=== PATIENT | female | born 1965 | race Caucasian/White ===

== ENCOUNTER 2017-05-05 13:47 | Inpatient (IN) | payer BC, OTHER ==
[2017-05-05] MEDS ORDERED: MAG HYDROX/AL HYDROX/SIMETH 30 ML UNIT-DOSE CUP PO ONE (14:39)
[2017-05-05] MEDS ORDERED: FAMOTIDINE 20 MG/50 ML IVPB 50 ML IVPB ONE ×2 (14:39→15:00)
--- NOTE | 2017-05-05 14:51 | PDOC ---
History of Present Illness - General Chief Complaint: Tongue Swelling Stated Complaint: TONGUE SWELLING, THROAT PAIN Time Seen by Provider: 05/05/17 14:34 History Source: Patient - History of Present Illness Associated Symptoms: denies: chest pain, cough, fever/chills, nausea/vomiting, shortness of breath Past History - Past Medical History Allergies/Adverse Reactions: Allergies Allergy/AdvReac Type Severity Reaction Status Date / Time codeine Allergy Verified 05/05/17 14:12 Home Medications: Ambulatory Orders Amlodipine Besylate 10 mg PO DAILY 05/05/17 Losartan Potassium 25 mg PO DAILY 05/05/17 HTN: Yes - Immunization History Immunization Up to Date: Yes - Suicide/Smoking/Psychosocial Hx Smoking History: Current every day smoker Number of Cigarettes Smoked Daily: 1 Information on smoking cessation initiated: No Hx Alcohol Use: No Drug/Substance Use Hx: No Substance Use Type: None Review of Systems - Review of Systems Constitutional: No: Chills, Fever HEENTM: No: Throat Pain, Throat Swelling Respiratory: No: Cough, Shortness of Breath Cardiac (ROS): No: Chest Pain ABD/GI: No: Constipated, Diarrhea, Nausea, Vomiting *Physical Exam - Vital Signs Last Vital Signs Temp Pulse Resp BP Pulse Ox 98.6 F 62 16 129/78 96 05/05/17 14:12 05/05/17 14:12 05/05/17 14:12 05/05/17 14:12 05/05/17 14:12 - Physical Exam General Appearance: Yes: Appropriately Dressed. No: Apparent Distress HEENT: positive: Normal ENT Inspection, Normal Voice. negative: Scleral Icterus (R), Scleral Icterus (L), Tonsillar Exudate, Tonsillar Erythema Neck: positive: Supple. negative: Lymphadenopathy (R), Lymphadenopathy (L) Respiratory/Chest: positive: Lungs Clear, Normal Breath Sounds. negative: Respiratory Distress, Stridor Cardiovascular: positive: Regular Rate, S1, S2 Gastrointestinal/Abdominal: positive: Soft. negative: Tender Integumentary: positive: Dry, Warm Neurologic: positive: Fully Oriented, Alert, Normal Mood/Affect ED Treatment Course - LABORATORY CBC & Chemistry Diagram: 05/05/17 14:50 05/05/17 14:50 - RADIOLOGY Radiology Studies Ordered: Category Date Time Status NECK SOFT TISSUE [RAD] Stat Radiology 05/05/17 14:39 Ordered Medical Decision Making - Medical Decision Making 05/05/17 14:40 52 yo F, h/o HTN, on an ARB combination drug, p/w dysphagia. Patient states for the past 3 days whenever she eats she feels like food gets stuck in her throat and has to drink water for it to go down. Also c/o excessive belching. Denies throat pain, nausea, vomiting or abdominal pain. States she was seen in Urgent Care on and at that time appeared to also have ? swelling " to back of my throat" and so was treated for possible allergic reaction to unclear source (was not taken off blood pressure meds) with zantac, pepcid and prednisone. States she was also given amoxicillin for possible strep. Does not know results of rapid strep or culture. States she returned to same urgent care center the following day for persistent symptoms and was taken off the amoxicillin and given a steroid shot. States symptoms continued, so went to [facility] ED last night and states they did a rapid strep in ED which was negative and gave her a liquid dose of prednisone. Pt has no known food/drug allergies. She called Dr Antonio, who is the PMD of her mother, who referred her to ED See exam Dysphagia w/ belching Possible gastritis/GERD No e/o allergic rxn on exam today -GI cocktail -labs -Soft tissues neck film -discuss dispo w/ Dr Antonio 05/05/17 16:21 Labs and neck film unremarkable. K 3.3, will replete. Pt attempted to eat ice but states it did not go down and instead got stuck in her throat causing her to cough it back up. Might need to be admitted for GI eval as unable to tolerate po 05/05/17 17:[address] Antonio, admit to his service and place consult to Dr Villagomez of GI 05/05/17 17:26 05/05/17 17:32 Case d/w Dr Oseguera who will continue to follow pt inhouse *DC/Admit/Observation/Transfer Diagnosis at time of Disposition: Dysphagia Qualifiers: Dysphagia type: unspecified Qualified Code(s): R13.10 - Dysphagia, unspecified - Discharge Dispostion Condition at time of disposition: Good Admit: Yes - Referrals Referrals: Bora Antonio MD [Primary Care Provider] -
[2017-05-05] MEDS ORDERED: MAG HYDROX/AL HYDROX/SIMETH 30 ML UNIT-DOSE CUP ONE (15:00)
[2017-05-05] MEDS ORDERED: DEXTROSE 5%-0.45% SALINE 1,000 ML IV SCH ×2 (15:00→18:45)
[2017-05-05 15:26] LABS: BASOPHIL 0.4 % (0-2.0); EOSINOPHIL 0.1 % (0-4.5); MCH 29.4 pg (25.7-33.7); MCHC 33.5 g/dl (32.0-36.0); MEAN CELL VOLUME 87.7 fl (80-96); MEAN PLT VOLUME 9.3 fl (7.5-11.1); NEUTROPHILS 87.2 % (42.8-82.8); PLATELET COUNT 232 K/MM3 (134-434); RDW 14.2 % (11.6-15.6); WHITE BLOOD COUNT 10.9 K/mm3 (4.0-10.0)
[2017-05-05 15:51] LABS: ALBUMIN 4.1 g/dl (3.4-5.0); ALK PHOS 94 U/L (45-117); ANION GAP 8 (8-16); BILIRUBIN,TOTAL 0.5 mg/dL (0.2-1.0); CALCIUM 10.5 mg/dL (8.5-10.1); CO2 29 mmol/L (21-32); CREATININE 0.8 mg/dL (0.55-1.02); GLUCOSE,RANDOM 109 mg/dL (74-106); SGPT/ALT 56 U/L (12-78); TOT PROT 8.5 g/dl (6.4-8.2)
[2017-05-05 15:54] LABS: SGOT/AST 22 U/L (15-37)
[2017-05-05] MEDS ORDERED: POTASSIUM CHLORIDE ORAL LIQUID 20 MEQ/15 ML PO ONE (16:19)
[2017-05-05] MEDS ORDERED: POTASSIUM CHLORIDE ORAL LIQUID 20 MEQ/15 ML ONE (16:36)
[2017-05-05] MEDS ORDERED: LORazepam 1 MG TABLET PO ONE (17:26)
[2017-05-05] MEDS ORDERED: LORazepam 0.5 MG TABLET ONE (17:32)
[2017-05-05 18:21] LABS: INR 1.06 (0.82-1.09); PROTHROMBIN TIME (PATIENT) 11.7 SEC (9.98-11.88)
[2017-05-05] MEDS ORDERED: D5-1/2NS+20 MEQ KCL - 1,000 ML IV SCH (18:45)
--- NOTE | 2017-05-05 19:13 | CON.GI ---
Consult Consult Specialty:: GI: Dr. Oseguera covering for Dr. Villagomez Referred by:: Dr. Antonio Reason for Consultation:: Throat pain, difficulty swallowing - History of Present Illness Chief Complaint: I have pain in my throat and it's hard to swallow History of Present Illness: 52 yo F admitted through [facility] ER for evaluation of dysphagia. She states that she was in her USOH up until tghree days ago. She at a cookie and coffee and subsequently began experiencing the sensation of food gets stuck in her throat and has to drink water for it to go down. She felt that her throat would bulge out during these episodes. nausea, vomiting or abdominal pain. States she was seen in Urgent Care on and at that time appeared to also have ? swelling " to back of my throat" and so was treated for possible allergic reaction to unclear source (was not taken off blood pressure meds) with zantac, pepcid and prednisone. States she was also given amoxicillin for possible strep. Does not know results of rapid strep or culture. States she returned to same urgent care center the following day for persistent symptoms and was taken off the amoxicillin and given a steroid shot. States symptoms continued along with shortness of breath, so went to the [facility] ED last night and states they did a rapid strep in ED which was negative and gave her a liquid dose of prednisone. She has never had similar episodes in the past. She has never had an upper endoscopy or colonoscopy. There is no family history of colorectal cancer or other GI malignancy. She was given crackers in the ER to test if she could swallow solids. She could not swallow the crackers. She was able to take sips of water while I evaluated her in the ER. She currently denies any shortness of breath, nausea, vomiting. 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 Place of : [facility] History of Recent Travel: No Home Medications - Allergies Allergies/Adverse Reactions: Allergies Allergy/AdvReac Type Severity Reaction Status Date / Time codeine Allergy Verified 05/05/17 14:12 - Home Medications Home Medications: Ambulatory Orders Amlodipine Besylate 10 mg PO DAILY 05/05/17 Losartan Potassium 25 mg PO DAILY 05/05/17 Family Disease History - Family Disease History Family Disease History: Other: Father (Alive: 80: CAD), Mother (Alive: 75: CAD) , Brother (2, one with CAD, one with DM II), Daughter (2, healthy) Other Family History: No family history of colorectal cancer or other GI malignancy Review of Systems - Review of Systems Constitutional: denies: Fever, Unintentional Wgt. Loss HENT: reports: Difficult Swallowing. denies: Throat Pain Respiratory: reports: SOB (yesterday) Gastrointestinal: denies: Abdominal Pain, Constipation, Diarrhea, Rectal Bleeding Physical Exam-GI Vital Signs: Vital Signs Temperature 98.6 F 05/05/17 14:12 Pulse Rate 62 05/05/17 14:12 Respiratory Rate 16 05/05/17 14:12 Blood Pressure 129/78 05/05/17 14:12 O2 Sat by Pulse Oximetry (%) 96 05/05/17 14:12 Constitutional: Yes: Calm Eyes: No: Sclera Icterus Cardiovascular: Yes: Regular Rate and Rhythm. No: Murmur Respiratory: Yes: CTA Bilaterally Gastrointestinal Inspection: No: Distention ...Auscultate: Yes: Normoactive Bowel Sounds ...Palpate: No: Hepatomegaly, Splenomegaly Edema: No Neurological: Yes: Alert, Oriented Labs: INR, PTT INR 1.06 (0.82-1.09) 05/05/17 18:00 Assessment/Plan Throat discomfort / dysphagia: Able to swallow liquids in ED tonight Advised the following: NPO ENT IV Hydration Protonix 40mg IVPB daily Eval of hypercalcemia / hyperproteinemia AM Labs Discussed possible EGD for further intraluminal evaluation. Discussed potential risks of the procedure like but not limited to bleeding, perforation requiring surgery to repair, infection sedation medication effects all of which could be potentially life threatening. She has agreed to the procedure.
--- NOTE | 2017-05-05 19:17 | HP ---
Admitting History and Physical - Primary Care Physician PCP: Bora Antonio - Admission Chief Complaint: inability to swallow History of Present Illness: 52 y/o F with Hx of Htn, developed sudden onset of difficulty swallowing on 05/03 while at work; in association with increased throat & nasal secretions. She expressed the sensation that she could not breath and felt her throat "closing" down, causing her to panic. She then went to Urgent [facility] Ctr in the [place] where she was given PO Abs, and steroids (which she started immediately that day), but had little effect. She then went back later in the day, and was given a steroid injection. She was told that a throat strept test was negative. That night she still felt ill. The next day, she was not improved, and then went to the Ed at [facility] ([place] She was d/c'd home, with Rx for Zpak. No Xrays were taken in any of the se facilities. Today she remained the same, with little ability to swallow liquids, negotiating them slowly down her throat. She denies a sore throat, ear ache, cough, SOB, rashes, dizziness, palpitations. She has had no previous such episodes. She does smoke, but only 1 cigarette a day, and also does "vaping", which she did in the AM of 05/03/17. She was "well" all this past week prior to this episode.She denies being under any unusual degree of stress. 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 History of Recent Travel: No Home Medications - Allergies Allergies/Adverse Reactions: Allergies Allergy/AdvReac Type Severity Reaction Status Date / Time codeine Allergy Verified 05/05/17 14:12 - Home Medications Home Medications: Ambulatory Orders Amlodipine Besylate 10 mg PO DAILY 05/05/17 Losartan Potassium 25 mg PO DAILY 05/05/17 Family Disease History - Family Disease History Family Disease History: Diabetes: Brother, Heart Disease: Father, Mother, Brother Review of Systems - Review of Systems Constitutional: reports: No Symptoms Eyes: reports: No Symptoms HENT: reports: Difficult Swallowing Neck: reports: Lumps Cardiovascular: reports: No Symptoms Respiratory: reports: No Symptoms Gastrointestinal: reports: No Symptoms Genitourinary: reports: No Symptoms Breasts: reports: No Symptoms Reported Musculoskeletal: reports: No Symptoms Integumentary: reports: No Symptoms Neurological: reports: No Symptoms Endocrine: reports: No Symptoms Hematology/Lymphatic: reports: No Symptoms Psychiatric: reports: No Symptoms (to breathing issue), Anxiety Physical Examination Vital Signs: Vital Signs Temperature 98.6 F 05/05/17 14:12 Pulse Rate 62 05/05/17 14:12 Respiratory Rate 16 05/05/17 14:12 Blood Pressure 129/78 05/05/17 14:12 O2 Sat by Pulse Oximetry (%) 96 05/05/17 14:12 Findings/Remarks: found awake and coherent on ED stretcher skin--no acute lesions, diaphoresis head--NC eyes--eomi, SANTA oral--no swelling of oral structures, redness; tongue midline & normal appearing neck--supple, no masses, stridor, phonation is clear lungs--some rhonchi (expiratory); unlabored heart--RR breasts--(deferred) abd--soft, NT, ND, no masses ext--no CCE; ROM intact neuro--alert; lucid, coherent; speech is fluent; no focal motor deficits, no tremors. Labs: CBCD WBC 10.9 K/mm3 (4.0-10.0) H 05/05/17 14:50 RBC 4.91 M/mm3 (3.60-5.2) 05/05/17 14:50 Hgb 14.4 GM/dL (10.7-15.3) 05/05/17 14:50 Hct 43.0 % (32.4-45.2) 05/05/17 14:50 MCV 87.7 fl (80-96) 05/05/17 14:50 MCHC 33.5 g/dl (32.0-36.0) 05/05/17 14:50 RDW 14.2 % (11.6-15.6) 05/05/17 14:50 Plt Count 232 K/MM3 (134-434) 05/05/17 14:50 MPV 9.3 fl (7.5-11.1) 05/05/17 14:50 CMP Sodium 136 mmol/L (136-145) 05/05/17 14:50 Potassium 3.3 mmol/L (3.5-5.1) L 05/05/17 14:50 Chloride 99 mmol/L (98-107) 05/05/17 14:50 Carbon Dioxide 29 mmol/L (21-32) 05/05/17 14:50 Anion Gap 8 (8-16) 05/05/17 14:50 BUN 20 mg/dL (7-18) H 05/05/17 14:50 Creatinine 0.8 mg/dL (0.55-1.02) 05/05/17 14:50 Creat Clearance w eGFR > 60 (>60) 05/05/17 14:50 Random Glucose 109 mg/dL (74-106) H 05/05/17 14:50 Calcium 10.5 mg/dL (8.5-10.1) H 05/05/17 14:50 Total Bilirubin 0.5 mg/dL (0.2-1.0) 05/05/17 14:50 AST 22 U/L (15-37) 05/05/17 14:50 ALT 56 U/L (12-78) 05/05/17 14:50 Alkaline Phosphatase 94 U/L (45-117) 05/05/17 14:50 Total Protein 8.5 g/dl (6.4-8.2) H 05/05/17 14:50 Albumin 4.1 g/dl (3.4-5.0) 05/05/17 14:50 INR, PTT INR 1.06 (0.82-1.09) 05/05/17 18:00 Imaging - Results X-ray: Report Reviewed (neck soft tissue) Cat Scan: Pending Problem List - Problems (1) Dysphagia Assessment/Plan: developing abruptly to where she is minimally able to swallow liquids slowly; indicating that there is something "stuck" in her thraot that she cannot clear. PLAN: GI & ENT eval; may need endoscopy; will Rx clear liquids only. Code(s): R13.10 - DYSPHAGIA, UNSPECIFIED Qualifiers: Dysphagia type: unspecified Qualified Code(s): R13.10 - Dysphagia, unspecified (2) Hypertension Assessment/Plan: longstanding; controlled with dual agents; will use amlodpine only for now. Code(s): I10 - ESSENTIAL (PRIMARY) HYPERTENSION Qualifiers: Hypertension type: essential hypertension Qualified Code(s): I10 - Essential (primary) hypertension (3) Hypercalcemia Assessment/Plan: no past hx of this; will check TFTs as well as PTH, ionized calcium Code(s): E83.52 - HYPERCALCEMIA (4) Elevated blood protein Assessment/Plan: high TP noted; will check SPEP Code(s): E88.09 - OTH DISORDERS OF PLASMA-PROTEIN METABOLISM, NEC Assessment/Plan 52 y/o F previously healthy now with inability to swallow properly despite having been Rx'd antibiotics and steroids. ~~~~~~~~~~~~~~~~~~~~~~~~~~~ Dr Antonio
--- NOTE | 2017-05-05 20:32 | PN ---
Progress Note (short form) - Note Progress Note: Called imaging gluing machine operator [facility] to have the reports of CT scan of neck and chest faxed over for review: there was no radiologist able to be contacted by their machine load clerk. Ms. David's nurse had called earlier as well. I gave him the patient information to see if he could have the reports faxed over and he told me he would pass along that information.
[2017-05-05] MEDS: DEXTROSE 5%-0.45% SALINE 1,000 ML IV SCH (21:00)
[2017-05-05 21:25] VITALS: BMI 28.6
[2017-05-05] MEDS: PANTOPRAZOLE SODIUM 40 MG in SODIUM CHLORIDE 100 ML IVPB SCH (21:33)
[2017-05-05 22:37] LABS: URINE APPEARANCE SLCLOUDY; URINE BILIRUBIN NEGATIVE (NEGATIVE); URINE BLOOD NEGATIVE (NEGATIVE); URINE COLOR YELLOW; URINE GLUCOSE (UA) NEGATIVE (NEGATIVE); URINE KETONE NEGATIVE (NEGATIVE); URINE LEUK ESTERASE NEGATIVE (NEGATIVE); URINE NITRITE NEGATIVE (NEGATIVE); URINE PROTEIN NEGATIVE (NEGATIVE); URINE UROBILINOGEN NEGATIVE mg/dL (0.2-1.0)
[2017-05-05] MEDS: LORazepam 0.5 MG TABLET PO PRN (22:50)
[2017-05-06] MEDS: DEXTROSE 5%-0.45% SALINE 1,000 ML IV SCH (06:08)
[2017-05-06 07:44] LABS: BASOPHIL 0.6 % (0-2.0); EOSINOPHIL 0.3 % (0-4.5); MCH 29.4 pg (25.7-33.7); MCHC 33.4 g/dl (32.0-36.0); MEAN CELL VOLUME 88.1 fl (80-96); MEAN PLT VOLUME 9.3 fl (7.5-11.1); NEUTROPHILS 63.2 % (42.8-82.8); PLATELET COUNT 206 K/MM3 (134-434); RDW 14.3 % (11.6-15.6)
[2017-05-06 08:11] LABS: ANION GAP 7 (8-16); CALCIUM 9.2 mg/dL (8.5-10.1); CO2 30 mmol/L (21-32); CREATININE 0.8 mg/dL (0.55-1.02); GLUCOSE,RANDOM 83 mg/dL (74-106); MAGNESIUM 2.2 mg/dL (1.8-2.4)
[2017-05-06 08:20] LABS: THYROID STIMULATING HORMONE 2.02 uIU/ml (0.358-3.74)
[2017-05-06] MEDS ORDERED: POTASSIUM CHLORIDE 20 MEQ PREMIX IVPB 100 ML IVPB SCH (09:00)
--- NOTE | 2017-05-06 09:15 | PN ---
Progress Note (short form) - Note Progress Note: States feeling a little better today however had problems swallowing last night and was given ativan last night, Prelim nighthawk revealed calcifications in the coronaries, carotids and mild thickening of the cervical esophagus. Able to tolerate ice chips last night ENT evaluation Replete K (10 Meq a x 2 ordered) For EGD Will need f/u of aterosclerotic depoits in vessels per PMD
[2017-05-06] MEDS: KCL 10 MEQ IVPB 100 ML IVPB SCH ×2 (09:17→10:30)
[2017-05-06] MEDS ORDERED: PROMETHAZINE HCL 25 MG/1 ML VIAL IVPUSH PRN (09:26)
[2017-05-06] MEDS ORDERED: ONDANSETRON 4 MG/2 ML VIAL IVPUSH PRN (09:26)
[2017-05-06] MEDS ORDERED: LACTATED RINGERS SOLUTION 1,000 ML IV SCH (09:30)
--- NOTE | 2017-05-06 09:54 | EKG ---
Test Reason : Blood Pressure : / mmHG Vent. Rate : 065 BPM Atrial Rate : 065 BPM P-R Int : 154 ms QRS Dur : 084 ms QT Int : 420 ms P-R-T Axes : 051 031 034 degrees QTc Int : 436 ms NORMAL SINUS RHYTHM NORMAL ECG NO PREVIOUS ECGS AVAILABLE Confirmed by NICK FULLER MD ([id number]) on 05/06/2017 9:53:52 AM Referred By: Confirmed By:NICK FULLER MD
[2017-05-06] MEDS ORDERED: PANTOPRAZOLE SODIUM 40 MG in SODIUM CHLORIDE 100 ML IVPB SCH (10:00)
--- NOTE | 2017-05-06 11:27 | PN ---
Progress Note (short form) - Note Progress Note: ^^^^^^^^^^ Medical Current Medications Amlodipine Besylate (Norvasc -) 5 mg PO DAILY CHAS Fentanyl (Sublimaze Injection -) 50 mcg IVPUSH [id number] PRN PRN Reason: PAIN Stop: 05/09/17 09:27 Pantoprazole Sodium 40 mg/ (Sodium Chloride) 100 mls @ 200 mls/hr IVPB DAILY CHAS Last Admin: 05/05/17 21:33 Dose: 200 mls/hr Dextrose/Sodium Chloride (D5-1/2ns -) 1,000 mls @ 100 mls/hr IV ASDIR CHAS Last Admin: 05/06/17 06:08 Dose: 100 mls/hr Lactated Ringer's (Lactated Ringers Solution) 1,000 mls @ 125 mls/hr IV ASDIR CHAS Lorazepam (Ativan -) 0.5 mg PO BID PRN PRN Reason: ANXIETY Last Admin: 05/05/17 22:50 Dose: 0.5 mg Ondansetron HCl (Zofran Injection) 4 mg IVPUSH Q6H PRN PRN Reason: NAUSEA AND/OR VOMITING Stop: 05/06/17 15:27 Promethazine HCl (Phenergan Injection -) 12.5 mg IVPUSH Q6H PRN PRN Reason: NAUSEA-FOR RESCUE AFTER 15 MIN Stop: 05/06/17 15:27 Laboratory Results - last 24 hr 05/05/17 05/05/17 05/05/17 14:50 14:50 18:00 WBC 10.9 H RBC 4.91 Hgb 14.4 Hct 43.0 MCV 87.7 MCH 29.4 MCHC 33.5 RDW 14.2 Plt Count 232 MPV 9.3 Neutrophils % 87.2 H Lymphocytes % 8.5 Monocytes % 3.8 Eosinophils % 0.1 Basophils % 0.4 PT with INR 11.70 INR 1.06 Sodium 136 Potassium 3.3 L Chloride 99 Carbon Dioxide 29 Anion Gap 8 BUN 20 H Creatinine 0.8 Creat Clearance w eGFR > 60 Random Glucose 109 H Calcium 10.5 H Magnesium Total Bilirubin 0.5 AST 22 ALT 56 Alkaline Phosphatase 94 Total Protein 8.5 H Albumin 4.1 TSH Urine Color Urine Appearance Urine pH Urine Protein Urine Glucose (UA) Urine Ketones Urine Blood Urine Nitrite Urine Bilirubin Urine Urobilinogen Blood Type Antibody Screen 05/05/17 05/05/17 05/06/17 18:00 22:25 06:40 WBC 6.0 D RBC 4.53 Hgb 13.3 Hct 39.9 MCV 88.1 MCH 29.4 MCHC 33.4 RDW 14.3 Plt Count 206 MPV 9.3 Neutrophils % 63.2 D Lymphocytes % 25.6 D Monocytes % 10.3 H D Eosinophils % 0.3 D Basophils % 0.6 PT with INR INR Sodium Potassium Chloride Carbon Dioxide Anion Gap BUN Creatinine Creat Clearance w eGFR Random Glucose Calcium Magnesium Total Bilirubin AST ALT Alkaline Phosphatase Total Protein Albumin TSH Urine Color Yellow Urine Appearance Slcloudy Urine pH 6.0 Urine Protein Negative Urine Glucose (UA) Negative Urine Ketones Negative Urine Blood Negative Urine Nitrite Negative Urine Bilirubin Negative Urine Urobilinogen Negative Blood Type AB POSITIVE Antibody Screen Negative 05/06/17 06:40 WBC RBC Hgb Hct MCV MCH MCHC RDW Plt Count MPV Neutrophils % Lymphocytes % Monocytes % Eosinophils % Basophils % PT with INR INR Sodium 140 Potassium 3.0 L Chloride 103 Carbon Dioxide 30 Anion Gap 7 L BUN 12 D Creatinine 0.8 Creat Clearance w eGFR Random Glucose 83 D Calcium 9.2 Magnesium 2.2 Total Bilirubin AST ALT Alkaline Phosphatase Total Protein Albumin TSH 2.02 Urine Color Urine Appearance Urine pH Urine Protein Urine Glucose (UA) Urine Ketones Urine Blood Urine Nitrite Urine Bilirubin Urine Urobilinogen Blood Type Antibody Screen Vital Signs Temperature 97.9 F 05/06/17 06:00 Pulse Rate 71 05/06/17 09:26 Respiratory Rate 18 05/06/17 09:26 Blood Pressure 145/88 05/06/17 09:26 O2 Sat by Pulse Oximetry (%) 96 05/05/17 21:12 CC; loose BM this AM; still feels throat discmfort `````````````````` skin--good color eyes--midline neck--no masses, stridor, tenderness lungs--clear heart--RR ext--no edema neuro--alert, lucid, coherent `````````````````````````````` EKG=NSR, no acute findings ```````````````````````````` Summ > dysphagia--still has difficulty swallowing; CT reveals thickened upper esoph ( see report); for EGD; would need ENt eval (consult pending) > Htn--BP is reasonable range > low K--replenishing pre-EGD; possibley 2nd loose BMs > coronary atherosclerosis--as shown by CT; will need cardio eval as OP > hypercalcemia--no longer evident > cholelithiasis--asympt; picked up on CT ~~~~~~~~~~~~~~~~~~~~~~~~~~~~ Dr Antonio Problem List - Problems (1) Dysphagia Code(s): R13.10 - DYSPHAGIA, UNSPECIFIED Qualifiers: Dysphagia type: unspecified Qualified Code(s): R13.10 - Dysphagia, unspecified; R13.10 - Dysphagia, unspecified (2) Hypertension Code(s): I10 - ESSENTIAL (PRIMARY) HYPERTENSION Qualifiers: Hypertension type: essential hypertension Qualified Code(s): I10 - Essential (primary) hypertension; I10 - Essential (primary) hypertension; I10 - Essential (primary) hypertension (3) Hypercalcemia Code(s): E83.52 - HYPERCALCEMIA (4) Elevated blood protein Code(s): E88.09 - OTH DISORDERS OF PLASMA-PROTEIN METABOLISM, NEC
[2017-05-06] MEDS: PANTOPRAZOLE SODIUM 40 MG in SODIUM CHLORIDE 100 ML IVPB SCH (11:28)
[2017-05-06] MEDS ORDERED: LIDOCAINE HCL/PF 2% SDV 5ML VIAL ONE (11:48)
[2017-05-06] MEDS ORDERED: PROPOFOL 20 ML ONE (11:48)
--- NOTE | 2017-05-06 12:32 | PN ---
Progress Note (short form) - Note Progress Note: EGD complete. Report left in procedural section of physical chart and to be scanned into [employer]
[2017-05-06] MEDS: amLODIPine BESYLATE 5 MG TABLET (FP) PO SCH (13:01)
[2017-05-06] MEDS: LORazepam 0.5 MG TABLET PO PRN (13:52)
[2017-05-06 14:10] LABS: ANION GAP 5 (8-16); CALCIUM 8.7 mg/dL (8.5-10.1); CO2 32 mmol/L (21-32); CREATININE 0.7 mg/dL (0.55-1.02); GLUCOSE,RANDOM 96 mg/dL (74-106)
[2017-05-06] MEDS ORDERED: POTASSIUM CHLORIDE ORAL LIQUID 20 MEQ/15 ML PO SCH ×2 (15:30→18:00)
[2017-05-06] MEDS ORDERED: KCL 10 MEQ IVPB 100 ML IVPB SCH (15:30)
--- NOTE | 2017-05-06 16:40 | CON.ENT ---
Consult Consult Specialty:: ENT Referred by:: Marisela Reason for Consultation:: Difficulty swallowing - History of Present Illness Chief Complaint: Throat discomfort History of Present Illness: She developed diarrhea and then throat discomfort a few days ago. She went to Urgent care and was diagnosed with Some kind of throat infection/inflammation and had "3 neg throat cultures" over 3 urgent care and ER visits. She says she felt her throat was tight, but NEVER felt throat pain. She denies voice change. She still has loose stools and low potassium. She was on steroids and treatment for angioedema but continued to have this throat feeling. She was admitted throught the ER and has had normal WBC, and low potassium. She has had EGD earlier today that did not show any significant pathology. She has a clear voice today, and is burping a lot ad after drinking SELTZER. - History Source History Provided By: Patient, Medical Record Limitations to Obtaining History: No Limitations - Past Medical History Cardio/Vascular: Yes: HTN Musculoskeletal: Yes: Other (OA neck) - Past Surgical History Past Surgical History: Yes: Tubal Ligation (c5-c6 cervical surgery for disc dz; 3 yrs ago) Additional Surgical History: C5-C6 Spinal Fusion - Alcohol/Substance Use Hx Alcohol Use: No History of Substance Use: reports: None - Smoking History Smoking history: Current every day smoker Have you smoked in the past 12 months: Yes Aproximately how many cigarettes per day: 1 - Social History Usual Living Arrangement: With Spouse ADL: Independent 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 History of Recent Travel: No Home Medications - Allergies Allergies/Adverse Reactions: Allergies Allergy/AdvReac Type Severity Reaction Status Date / Time codeine Allergy Verified 05/05/17 14:12 - Home Medications Home Medications: Ambulatory Orders Amlodipine Besylate 10 mg PO DAILY 05/05/17 Losartan Potassium 25 mg PO DAILY 05/05/17 Family Disease History - Family Disease History Family Disease History: Diabetes: Brother, Heart Disease: Father, Mother, Brother, Other: Daughter (2, healthy) Other Family History: No family history of colorectal cancer or other GI malignancy Physical Exam-ENT Vital Signs: Vital Signs Temperature 97.7 F 05/06/17 15:58 Pulse Rate 67 05/06/17 15:58 Respiratory Rate 18 05/06/17 15:58 Blood Pressure 132/79 05/06/17 15:58 O2 Sat by Pulse Oximetry (%) 100 05/06/17 12:50 Constitutional: Yes: Well Nourished, No Distress Head: Yes: WNL, Atraumatic, Normocephalic Face: Yes: WNL, Symmetrical Eyes: Yes: WNL Nose: Yes: WNL Nasal Passage: Yes: WNL Oral/Pharynx: Yes: WNL Outer Ear: Yes: WNL Neck: Yes: WNL, Supple, Trachea Midline Imaging - Results Cat Scan: Image Reviewed (No upperaerodigestive pathology) Problem List - Problems (1) Dysphagia Assessment/Plan: I believe she may have a viral illness that caused some diarrhea and reflux. Stress exacerbated this then the addition of steroids may have made reflux worse. She has NO signs of throat infection. I would use maalox/mylanta to soothe throat for a few days as needed together with PPI/H2 blockers. She should avoid seltzer, soda, spicy foods. She should avoid eating then lying down and avoid big meals. She can f/u with me in 1-2 weeks. Code(s): R13.10 - DYSPHAGIA, UNSPECIFIED Qualifiers: Dysphagia type: pharyngoesophageal phase Qualified Code(s): R13.14 - Dysphagia, pharyngoesophageal phase; R13.14 - Dysphagia, pharyngoesophageal phase Procedure Note Procedure: Fiberoptic laryngoscopy: No lesions or masses. No paralyis. No pooling. She has mild arytenoid erythema. Exam c/w mild Laryngopharyngeal reflux.
--- NOTE | 2017-05-06 17:50 | PN ---
Progress Note (short form) - Note Progress Note: called by dr. martha blanc. he tells me that there was another finding on the chest CT scan not read on prelim report. there is a 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 that will need further follow-up.
[2017-05-06] MEDS: MAG HYDROX/AL HYDROX/SIMETH 30 ML UNIT-DOSE CUP PO SCH ×2 (18:49→23:07)
[2017-05-07] MEDS: MAG HYDROX/AL HYDROX/SIMETH 30 ML UNIT-DOSE CUP PO SCH ×3 (06:24→21:36)
[2017-05-07 07:09] LABS: ANION GAP 9 (8-16); CALCIUM 9.1 mg/dL (8.5-10.1); CO2 31 mmol/L (21-32); CREATININE 0.7 mg/dL (0.55-1.02); GLUCOSE,RANDOM 85 mg/dL (74-106)
[2017-05-07] MEDS: amLODIPine BESYLATE 5 MG TABLET (FP) PO SCH (09:05)
[2017-05-07] MEDS: PANTOPRAZOLE 40 MG TABLET (FP) PO SCH (09:05)
--- NOTE | 2017-05-07 12:38 | CONSULT ---
Admitting History and Physical - Primary Care Physician PCP: Bora Antonio - Admission History of Present Illness: Per EMR: Admission Chief Complaint: inability to swallow History of Present Illness: 52 y/o F with Hx of Htn, developed sudden onset of difficulty swallowing on 05/03 while at work; in association with increased throat & nasal secretions. She expressed the sensation that she could not breath and felt her throat "closing" down, causing her to panic. She then went to Urgent care Ctr in the [place] where she was given PO Abs, and steroids (which she started immediately that day), but had little effect. She then went back later in the day, and was given a steroid injection. She was told that a throat strept test was negative. That night she still felt ill. The next day, she was not improved, and then went to the Ed at [facility] ([place] She was d/c'd home, with Rx for Zpak. No Xrays were taken in any of the se facilities. Today she remained the same, with little ability to swallow liquids, negotiating them slowly down her throat. She denies a sore throat, ear ache, cough, SOB, rashes, dizziness, palpitations. She has had no previous such episodes. She does smoke, but only 1 cigarette a day, and also does "vaping", which she did in the AM of 05/03/17. She was "well" all this past week prior to this episode.She denies being under any unusual degree of stress ENT evaluation "Fiberoptic laryngoscopy: No lesions or masses. No paralyis. No pooling. She has mild arytenoid erythema. Exam c/w mild Laryngopharyngeal reflux." Pt reports spinal sx 3 yrs ago. Fell in February 2017, with subsequent neck pain.Pt wearing neck brace. Reports not being able to swallow since . Now on full fluids. She is swallowing thin water and ice cream but reports thick soup and applesauce "gets stuck in her throat." History Source: Patient, Medical Record Limitations to Obtaining History: No Limitations - Past Medical History Cardiovascular: Yes: HTN Musculoskeletal: Yes: Other (OA neck) - Past Surgical History Past Surgical History: Yes: Tubal Ligation (c5-c6 cervical surgery for disc dz; 3 yrs ago) - Smoking History Smoking history: Current every day smoker Have you smoked in the past 12 months: Yes Aproximately how many cigarettes per day: 1 - Alcohol/Substance Use Hx Alcohol Use: No History of Substance Use: reports: None - Social History ADL: Independent 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) - General Mental Status: Alert and Oriented, Awake and Alert, Able to Follow Commands Attention: Intact Ability to Follow Directions: Excellent Head/Neck Control: WFL - Hearing Hearing: Functional Speech Evaluation - Communication Primary Language: MOZAMB[place] Communication: Yes: Within Normal Limits Oral Expression Ability: Yes: No Impairment - Speech Production Able to Make Needs Known: Yes: WNL Intelligibility: Yes: WNL - Speech Characteristics Voice Loudness: Normal Voice Pitch: Yes: Normal Voice Phonatory-based Quality: Yes: Normal Speech Pattern: Normal Speech Clarity: < 100% Nasal Resonance: Normal Articulation: Yes: Precise - Language/Auditory Comprehension Follows: Yes: 2 Stage Simple Commands - Language/Verbal Expression Able to Respond to Simple Queries: Yes: WNL Able to Communicate Wants and Needs: Yes: WNL Functional Communication Status: Yes: WNL - 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 Memory: Yes: WNL Short Term Memory: Yes: WNL - Swallow Evaluation/Bedside Assessment Current Nutritional Intake: Full Liquids Oral Secretions: Yes: WFL (reports post nasaldrip) Dentition: Yes: Adequate Facial Symmetry at Rest: Symmetrical Facial Symmetry on Retraction: Symmetrical Against Resistance Opening: Normal Against Resistance Closing: Normal Pucker Lips: Normal Smile: Normal Lingual Movement: Normal, Symmetric Lingual Speed of Movement: Normal Lingual Movement Strgth Against Opposition: Normal Lingual Movement Characteristics: Normal Laryngeal Movement: Able to Palpate Labial Seal: WFL Oral Prep Time: WFL A-P Transit: WFL Pocketing: None Timing of Swallow: WFL Coughing/Throat Clear: No Change in Voice: No Recommendations - Dysphagia Impressions/Plan Dysphagia Impressions: Ongoing Evaluation *Silent aspiration: cannot be R/O at bedside Recommendations: Modified Barium Swallow
[2017-05-07] MEDS ORDERED: POTASSIUM CHLORIDE TABS 10 MEQ TABLET.ER (FP) PO ONE (16:46)
--- NOTE | 2017-05-07 16:57 | PN ---
Progress Note (short form) - Note Progress Note: ^^^^^^^^^^^^^^ Medical Current Medications Al Hydroxide/Mg Hydroxide (Mylanta Oral Suspension -) 30 ml PO TID [facility] Last Admin: 05/07/17 14:35 Dose: 30 ml Amlodipine Besylate (Norvasc -) 5 mg PO DAILY [facility] Last Admin: 05/07/17 09:05 Dose: 5 mg Lactated Ringer's (Lactated Ringers Solution) 1,000 mls @ 125 mls/hr IV ASDIR [facility] Last Admin: 05/06/17 11:21 Dose: 125 mls/hr Lorazepam (Ativan -) 0.5 mg PO BID PRN PRN Reason: ANXIETY Last Admin: 05/06/17 13:52 Dose: 0.5 mg Pantoprazole Sodium (Protonix -) 40 mg PO DAILY [facility] Last Admin: 05/07/17 09:05 Dose: 40 mg Laboratory Results - last 24 hr 05/06/17 05/07/17 06:40 06:25 Sodium 140 Potassium 3.4 L Chloride 100 Carbon Dioxide 31 Anion Gap 9 BUN 8 D Creatinine 0.7 Random Glucose 85 Calcium 9.1 Ionized Calcium 5.6 Vital Signs Temperature 97.9 F 05/07/17 15:39 Pulse Rate 61 05/07/17 15:39 Respiratory Rate 18 05/07/17 15:39 Blood Pressure 140/78 05/07/17 15:39 O2 Sat by Pulse Oximetry (%) 100 05/07/17 08:50 CC; still feels throat discmfort `````````````````` skin--good color eyes--midline neck--no masses, stridor, tenderness lungs--clear heart--RR ext--no edema neuro--alert, lucid, coherent `````````````````````````````` Ct chest= mediastinal lesion (see report); sub CM pleural nodules ```````````````````````````` Summ > dysphagia--still has difficulty swallowing; CT reveals thickened upper esoph ( see report); EGD showed esophagitis and some gastritis; ENT eval revealed reflux Dz (see consult); started on PPI; had BMS showing no aspiration and able to tolerate all consistencies. > Mediastinal lesion--?incidental finding; will get contrast CT for better definition. Get TS consult > Htn--BP is reasonable range > low K--replenish as needed > coronary atherosclerosis--as shown by CT; will eventually need cardio eval as OP > hypercalcemia--no longer evident; ionized Ca+ is WNL; await PTH > cholelithiasis--asympt; picked up on CT ~~~~~~~~~~~~~~~~~~~~~~~~~~~~ Dr Antonio Problem List - Problems (1) Dysphagia Code(s): R13.10 - DYSPHAGIA, UNSPECIFIED Qualifiers: Dysphagia type: pharyngoesophageal phase Qualified Code(s): R13.14 - Dysphagia, pharyngoesophageal phase; R13.14 - Dysphagia, pharyngoesophageal phase (2) Hypertension Code(s): I10 - ESSENTIAL (PRIMARY) HYPERTENSION Qualifiers: Hypertension type: essential hypertension Qualified Code(s): I10 - Essential (primary) hypertension; I10 - Essential (primary) hypertension; I10 - Essential (primary) hypertension (3) Hypercalcemia Code(s): E83.52 - HYPERCALCEMIA (4) Elevated blood protein Code(s): E88.09 - OTH DISORDERS OF PLASMA-PROTEIN METABOLISM, NEC
--- NOTE | 2017-05-07 18:49 | CONSULT ---
Consult - text type - Consultation Consultation Note: Thoracic surgery: Reason for consult: anterior mediastinal mass CC: dysphagia 52F healthy, smoker, who p/w dysphagia for 1 week. Feels lump in her throat. No difference per her regarding liquids and solids. No weight loss, hematemesis, diplopia, or voice changes. PSH: tubal ligation and cervical spine surgery. EGD showed small hiatal hernia. CT showed anterior mediastinal mass. PE: VSS Clear lungs Imp/Plan: Anterior mediastinal mass with dysphagia: -Although unlikely, consider myasthenia and recommend Neurology consult. Ach receptor antibodies ordered. Also need to check TFTs, LDH, HCG. 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 -If no MG, would arrange biopsy and resect. If MG would need control of disease. I have spent 40 minutes on this consultation reviewing images history and physical with >50% in counseling and coordination of care.
[2017-05-07] MEDS: LORazepam 0.5 MG TABLET PO PRN (23:27)
[2017-05-08] MEDS: MAG HYDROX/AL HYDROX/SIMETH 30 ML UNIT-DOSE CUP PO SCH ×3 (06:41→21:22)
[2017-05-08 07:28] LABS: ANION GAP 7 (8-16); CALCIUM 9.1 mg/dL (8.5-10.1); CO2 32 mmol/L (21-32); CREATININE 0.6 mg/dL (0.55-1.02); GLUCOSE,RANDOM 97 mg/dL (74-106)
[2017-05-08 09:00] LABS: LDH 156 U/L (84-246)
[2017-05-08] MEDS: PANTOPRAZOLE 40 MG TABLET (FP) PO SCH (10:07)
[2017-05-08] MEDS: amLODIPine BESYLATE 5 MG TABLET (FP) PO SCH (10:07)
[2017-05-08] MEDS ORDERED: guaiFENesin/D-METHORPHAN HB 10 ML UNIT-DOSE CUPS PO ONE ×2 (11:00→11:30)
[2017-05-08 14:15] LABS: CALCIUM 9.1 mg/dL (8.7-10.2)
--- NOTE | 2017-05-08 14:41 | PN ---
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 Pt aware of CT findings. Suspect LPR, although mass may be contributory. Per surgery :Anterior mediastinal mass with dysphagia: -Although unlikely, consider myasthenia and recommend Neurology consult. Ach receptor antibodies ordered. Also need to check TFTs, LDH, HCG. 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 -If no MG, would arrange biopsy and resect. If MG would need control of disease. Pt is happy she is able to tolerate solids at this time. LPR/GERD recommendations provided on handout.
--- NOTE | 2017-05-08 18:41 | PN ---
Progress Note (short form) - Note Progress Note: ################# medical Current Medications Al Hydroxide/Mg Hydroxide (Mylanta Oral Suspension -) 30 ml PO TID [facility] Last Admin: 05/08/17 14:00 Dose: 30 ml Amlodipine Besylate (Norvasc -) 5 mg PO DAILY [facility] Last Admin: 05/08/17 10:07 Dose: 5 mg Lactated Ringer's (Lactated Ringers Solution) 1,000 mls @ 125 mls/hr IV ASDIR [facility] Last Admin: 05/06/17 11:21 Dose: 125 mls/hr Lorazepam (Ativan -) 0.5 mg PO BID PRN PRN Reason: ANXIETY Last Admin: 05/07/17 23:27 Dose: 0.5 mg Pantoprazole Sodium (Protonix -) 40 mg PO DAILY [facility] Last Admin: 05/08/17 10:07 Dose: 40 mg Laboratory Results - last 24 hr 05/06/17 05/08/17 05/08/17 06:40 05:30 05:30 Sodium 140 Potassium 3.8 Chloride 101 Carbon Dioxide 32 Anion Gap 7 L BUN 9 Creatinine 0.6 Random Glucose 97 Calcium 9.1 9.1 LD Total 156 Cancelled PTH Intact 21 PTH Intact Intraop 0 m Vital Signs Temperature 97.9 F 05/08/17 13:55 Pulse Rate 73 05/08/17 13:55 Respiratory Rate 16 05/08/17 13:55 Blood Pressure 140/84 05/08/17 13:55 O2 Sat by Pulse Oximetry (%) 100 05/07/17 21:00 CC; still feels throat discomfort; but able to swallow foods `````````````````` skin--good color eyes--midline neck--no masses, stridor, tenderness lungs--clear heart--RR ext--no edema neuro--alert, lucid, coherent `````````````````````````````` Ct chest= mediastinal lesion (see report); sub CM pleural nodules ```````````````````````````` Summ > dysphagia--still has difficulty swallowing describes a fullness encroaching on her airway; EGD showed esophagitis and some gastritis; ENT eval revealed reflux Dz (see consult); started on PPI; had BMS showing no aspiration and able to tolerate all consistencies. Issue of Myasthnia gravis being considered. 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 (see TS note); markers ordered; may need intervention procedure > Htn--BP is reasonable range > low K--replenish as needed > coronary atherosclerosis--as shown by CT; will eventually need cardio eval as OP > hypercalcemia--no longer evident; PTH okay > cholelithiasis--asympt; picked up on CT ~~~~~~~~~~~~~~~~~~~~~~~~~~~~ Dr Antonio Problem List - Problems (1) Dysphagia Code(s): R13.10 - DYSPHAGIA, UNSPECIFIED Qualifiers: Dysphagia type: pharyngoesophageal phase Qualified Code(s): R13.14 - Dysphagia, pharyngoesophageal phase; R13.14 - Dysphagia, pharyngoesophageal phase (2) Hypertension Code(s): I10 - ESSENTIAL (PRIMARY) HYPERTENSION Qualifiers: Hypertension type: essential hypertension Qualified Code(s): I10 - Essential (primary) hypertension; I10 - Essential (primary) hypertension; I10 - Essential (primary) hypertension (3) Hypercalcemia Code(s): E83.52 - HYPERCALCEMIA (4) Elevated blood protein Code(s): E88.09 - OTH DISORDERS OF PLASMA-PROTEIN METABOLISM, NEC
[2017-05-08] MEDS: LORazepam 0.5 MG TABLET PO PRN (21:22)
[2017-05-09 00:07] LABS: A/G RATIO 0.9 (0.7-1.7); ALBUMIN 3.5 g/dL (2.9-4.4); GLOBULIN, TOTAL 3.8 g/dL (2.2-3.9); TOTAL PROTEIN 7.3 g/dL (6.0-8.5)
[2017-05-09] MEDS: MAG HYDROX/AL HYDROX/SIMETH 30 ML UNIT-DOSE CUP PO SCH ×2 (06:15→13:14)
[2017-05-09 08:49] LABS: ANION GAP 8 (8-16); CALCIUM 9.2 mg/dL (8.5-10.1); CO2 32 mmol/L (21-32); CREATININE 0.6 mg/dL (0.55-1.02); GLUCOSE,RANDOM 110 mg/dL (74-106)
[2017-05-09] MEDS: PANTOPRAZOLE 40 MG TABLET (FP) PO SCH (09:00)
[2017-05-09] MEDS: amLODIPine BESYLATE 5 MG TABLET (FP) PO SCH (09:01)
--- NOTE | 2017-05-09 10:02 | CONSULT ---
Consult - text type - Consultation Consultation Note: Neurology History of Present Illness: 52 y/o F with Hx of Htn, developed sudden onset of difficulty swallowing on 05/03 while at work; in association with increased throat & nasal secretions. According to notes, she expressed the sensation that she could not breath and felt her throat "closing" down, causing her to panic. She then went to Urgent care Ctr in the [place] where she was given PO Abx, and steroids (which she started immediately that day), but had little effect. She eventually reached out to PCP, Dr. Yeager and was admitted to [facility]. She completed work up that included CT chest which I reviewed and demonstrated 1.5 X 3.5 X 5.5 cm soft tissue growth. Modified barium swallow was reviewed and normal. GI evaluation also completed with endoscopy that showed small hiatal hernia, gastritis, but no mechanical obstruction. I was consulted for dysphagia and ordered CT head to rule out infarct and was without acute changes. Myasteni also considered, appreciated Ach-Ab sent out already. Will add Musk Ab which is beneficial in cases such as this with bulbar symptoms. That being said, the patient reports her swallowing is better and she is consider surgical intervention for growth. 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 History of Recent Travel: No Home Medications - Allergies Allergies/Adverse Reactions: Allergies Allergy/AdvReac Type Severity Reaction Status Date / Time codeine Allergy Verified 05/05/17 14:12 - Home Medications Home Medications: Ambulatory Orders Amlodipine Besylate 10 mg PO DAILY 05/05/17 Losartan Potassium 25 mg PO DAILY 05/05/17 Family Disease History - Family Disease History Family Disease History: Diabetes: Brother, Heart Disease: Father, Mother, Brother Review of Systems - Review of Systems Constitutional: reports: No Symptoms Eyes: reports: No Symptoms HENT: reports: Difficult Swallowing Neck: reports: Lumps Cardiovascular: reports: No Symptoms Respiratory: reports: No Symptoms Gastrointestinal: reports: No Symptoms Genitourinary: reports: No Symptoms Breasts: reports: No Symptoms Reported Musculoskeletal: reports: No Symptoms Integumentary: reports: No Symptoms Neurological: reports: No Symptoms Endocrine: reports: No Symptoms Hematology/Lymphatic: reports: No Symptoms Psychiatric: reports: No Symptoms (to breathing issue), Anxiety Physical Examination Last Vital Signs Temp Pulse Resp BP Pulse Ox 98.4 F 72 20 130/89 100 05/09/17 06:00 05/09/17 06:00 05/09/17 06:00 05/09/17 06:00 05/08/17 20:16 Awake alert cooperative Card; RRR, no murmur Lungs clear, no wheezing Abdomen soft, NT Skin without rashes Pulses intact CN intact Strength 5/5 in upper and lower Sensory normal to LT Finger to nose intact Gait deferred CBCD WBC 6.0 K/mm3 (4.0-10.0) D 05/06/17 06:40 RBC 4.53 M/mm3 (3.60-5.2) 05/06/17 06:40 Hgb 13.3 GM/dL (10.7-15.3) 05/06/17 06:40 Hct 39.9 % (32.4-45.2) 05/06/17 06:40 MCV 88.1 fl (80-96) 05/06/17 06:40 MCHC 33.4 g/dl (32.0-36.0) 05/06/17 06:40 RDW 14.3 % (11.6-15.6) 05/06/17 06:40 Plt Count 206 K/MM3 (134-434) 05/06/17 06:40 MPV 9.3 fl (7.5-11.1) 05/06/17 06:40 CMP Sodium 140 mmol/L (136-145) 05/09/17 06:45 Potassium 4.0 mmol/L (3.5-5.1) 05/09/17 06:45 Chloride 100 mmol/L (98-107) 05/09/17 06:45 Carbon Dioxide 32 mmol/L (21-32) 05/09/17 06:45 Anion Gap 8 (8-16) 05/09/17 06:45 BUN 8 mg/dL (7-18) 05/09/17 06:45 Creatinine 0.6 mg/dL (0.55-1.02) 05/09/17 06:45 Creat Clearance w eGFR > 60 (>60) 05/05/17 14:50 Random Glucose 110 mg/dL (74-106) H 05/09/17 06:45 Calcium 9.2 mg/dL (8.5-10.1) 05/09/17 06:45 Total Bilirubin 0.5 mg/dL (0.2-1.0) 05/05/17 14:50 AST 22 U/L (15-37) 05/05/17 14:50 ALT 56 U/L (12-78) 05/05/17 14:50 Alkaline Phosphatase 94 U/L (45-117) 05/05/17 14:50 Total Protein 8.5 g/dl (6.4-8.2) H 05/05/17 14:50 Albumin 3.5 gm/dl (2.9-4.4) 05/06/17 06:40 Imaging Reviewed as above Plan: 52 y/o F with Hx of Htn, developed sudden onset of difficulty swallowing on 05/03 while at work; in association with increased throat & nasal secretions. According to notes, she expressed the sensation that she could not breath and felt her throat "closing" down, causing her to panic. CT chest which I reviewed and demonstrated 1.5 X 3.5 X 5.5 cm soft tissue growth. Modified barium swallow was reviewed and normal. GI evaluation also completed with endoscopy that showed small hiatal hernia, gastritis, but no mechanical obstruction. CT head was without acute changes. Will need to follow up on Ach-Ab sent out already. Added Musk Ab which is beneficial in cases such as this with bulbar symptoms. Patient up for discharge and can follow up on these tests as outpatient Monitor Blood pressure, on Amlodipine and Losartan, goal range < 140/90 Discussed importance of smoking cessation in detail
--- NOTE | 2017-05-09 12:16 | PATH ---
Surgical Pathology Report Patient Name: JONES GUIDRY [facility]. Rec. #: [id number] /Age/Gender: 1965 (Age: 52) / F Account: [id number] Location: [address] [place] [address]/[facility] Taken: 05/06/2017 Received: 05/07/2017 Reported: 05/09/2017 Physicians: Juvenal Arnett M.D. Specimen(s) Received A: BX STOMACH B: ANTRAL EROSION BIOPSY C: BX OF MID PROXIMAL ESOPHAGITIS Clinical History Dysphagia Sliding hiatal hernia, gastritis, dysphagia Final Diagnosis A. STOMACH, BODY, BIOPSY: MILD CHRONIC GASTRITIS. Immunostain for H. pylori is negative. B. STOMACH, ANTRUM, BIOPSY: MODERATE CHRONIC ACTIVE GASTRITIS. IMMUNOSTAIN FOR H. PYLORI IS NEGATIVE. C. MID AND PROXIMAL ESOPHAGUS, BIOPSY: SQUAMOUS EPITHELIUM WITH NO PATHOLOGIC CHANGES. NO EOSINOPHILIC ESOPHAGITIS IDENTIFIED. Electronically Signed Sathya Powell M.D. Gross Description A. Received in formalin, labeled "biopsy body of stomach" are 2 verma, irregular portions of soft tissue measuring 0.1 and 0.4 cm. in greatest dimension. The specimens are submitted in toto in one cassette. B. Received in formalin, labeled "antral erosions" are 2 verma, irregular portions of soft tissue averaging 0.2 cm. in greatest dimension. The specimens are submitted in toto in one cassette. C. Received in formalin, labeled "biopsy proximal and mid esophagus" are 4 verma, irregular portions of soft tissue ranging from 0.1-0.3 cm. in greatest dimension. The specimens are submitted in toto in one cassette. /05/07/2017 saudi05/07/2017
--- NOTE | 2017-05-09 12:43 | PN ---
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 She denies any fatigue in swallowing, speech production, or muscle use, which could be indicative of MG. Pending lab w/u. Suggested adding moistening agents to food, eg gravy,condiments, and possibly Biotene spray before meals, if neccessary for dry mouth.
[2017-05-09 14:14] VITALS: BP 135/87; PULSE 68; TEMP 97.9
--- NOTE | 2017-05-09 16:41 | DS ---
Physical Examination Vital Signs: Vital Signs Temperature 97.9 F 05/09/17 14:13 Pulse Rate 68 05/09/17 14:13 Respiratory Rate 18 05/09/17 14:13 Blood Pressure 135/87 05/09/17 14:13 O2 Sat by Pulse Oximetry (%) 100 05/08/17 20:16 Constitutional: Yes: Well Nourished, No Distress, Calm Eyes: Yes: Conjunctiva Clear Neck: Yes: Supple, Trachea Midline Cardiovascular: Yes: Regular Rate and Rhythm Respiratory: Yes: Regular Gastrointestinal: Yes: Soft Edema: No Integumentary: Yes: WNL Neurological: Yes: WNL ...Motor Strength: WNL Psychiatric: Yes: WNL Labs: CBC, BMP 05/06/17 06:40 05/09/17 06:45 Discharge Summary Reason For Visit: DYSPHAGIA Current Active Problems Dysphagia (Acute) Elevated blood protein (Acute) Hypercalcemia (Acute) Hypertension (Acute) mediastinal neoplasm Gastritis low potassium anxiety coronary atherosclerosis Gallstones Procedures: Principal: EGD Other Procedures: [facility] [place] Hospital Course: admitted with difficulty in swallowing (for which she was seen in several other medical facilities [employer]), which did not improve with Med Tx; she felt as thougfh she could not breathe and the secretions were pooling, causing anxiety. On admission her VSS, she was seen by GI, ENT. Gi undertook EGD showing some reflux and Gastritis. ENT noted upper reflux disease. CT of the chest then showed an anterior mediastinal mass of uncertain origin. 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 She was seen by Thoracic surgeon and Neurology, who both felt the lesion should be removed. Blood work was sent out for antibodies howver, much of these results were still outstanding at the time of discharge. In short, she was better able to eat though swallowed slowly. Her VSS. Condition: Good - Instructions Diet, Activity, Other Instructions: no hard to chew foods do not eat late at night do not eat lying down no drinking alcoholic beverages for now stop smoking. Referrals: Bora Antonio MD [Primary Care Provider] - Bartolome Villagomez MD [Staff Physician] - Disposition: HOME - Home Medications Comprehensive Discharge Medication List: Ambulatory Orders Losartan Potassium 25 mg PO DAILY 05/05/17 Pantoprazole Sodium [Protonix -] 40 mg PO DAILY #30 tab 05/09/17
== END 2017-05-09 17:53 | disposition home or self-care (01) | DRG 391 ==
LOC: JER 13:47 → JERBED 17:57 → J6S 19:42
PROVIDERS: ADMIT Internal Medicine; ATTEND Internal Medicine
PROC: 0DD58ZX Extraction of Esophagus, Via Natural or Artificial Opening Endoscopic, Diagnostic (ICD-10-PCS; 2017-05-06)
PROC: 0DD68ZX Extraction of Stomach, Via Natural or Artificial Opening Endoscopic, Diagnostic (ICD-10-PCS; 2017-05-06)
PROC: 0CJS8ZZ Inspection of Larynx, Via Natural or Artificial Opening Endoscopic (ICD-10-PCS; principal; 2017-05-06 12:02)
DX: R13.14 Dysphagia, pharyngoesophageal phase (principal); J98.59 Other diseases of mediastinum, not elsewhere classified; I10 Essential (primary) hypertension; M19.91 Primary osteoarthritis, unspecified site; F17.210 Nicotine dependence, cigarettes, uncomplicated; F41.8 Other specified anxiety disorders; E83.52 Hypercalcemia; E88.09 Other disorders of plasma-protein metabolism, not elsewhere classified; E04.1 Nontoxic single thyroid nodule; I77.810 Thoracic aortic ectasia; I25.10 Atherosclerotic heart disease of native coronary artery without angina pectoris; K80.80 Other cholelithiasis without obstruction; E87.6 Hypokalemia; K44.9 Diaphragmatic hernia without obstruction or gangrene; K29.60 Other gastritis without bleeding; D15.0 Benign neoplasm of thymus
CPT/HCPCS: 36415; 70360-TC; 70450-TC; 70490-TC; 71010-TC; 71250-TC; 71260-TC; 74230-TC; 80048; 80053; 81003; 82310; 82330; 83516; 83519; 83615; 83735; 83970; 84155; 84165; 84443; 84702; 85025; 85610; 86850; 86900; 86901; 88305-TC; 92611-GN; 93005; 93010; 94760; 99282-25

== ENCOUNTER 2022-05-26 04:02 | Day surgery (SDC) | payer BC, OTHER ==
[2022-05-25 11:25] VITALS: BMI 28.6
[~2022-05-26 04:02] MED LIST: BUPIVACAINE HCL/PF 0.5% (5MG/ML) 10 ML VIAL IJ ONE; LIDOCAINE HCL 1%, 10 MG/ML (20ML VIAL) PNB ONE
[2022-05-26] MEDS ORDERED: LIDOCAINE HCL 1%, 10 MG/ML (20ML VIAL) ONE (12:40)
[2022-05-26] MEDS ORDERED: LIDOCAINE 1%/EPI 1:100000 (20 ML MULTI DOSE VIAL) ONE (12:40)
[2022-05-26] MEDS ORDERED: BUPIVACAINE HCL/PF 0.5% (5MG/ML) 10 ML VIAL ONE (12:40)
[2022-05-26] MEDS ORDERED: BUPIVACAINE HCL/PF 0.25% (2.5MG/ML) 10 ML VIAL ONE (12:40)
[2022-05-26] MEDS ORDERED: MIDAZOLAM HCL 2 MG/2 ML SINGLE DOSE VIAL ONE (14:13)
[2022-05-26] MEDS ORDERED: PROPOFOL 20 ML ONE (14:13)
[2022-05-26] MEDS ORDERED: ceFAZolin SODIUM 1 GM VIAL ONE ×2 (14:29)
[2022-05-26] MEDS ORDERED: ceFAZolin 2 GRAM PREMIX BAG IVPB ONE (14:30)
[2022-05-26] MEDS ORDERED: LIDOCAINE HCL 1%, 10 MG/ML (20ML VIAL) PNB ONE (14:40)
[2022-05-26] MEDS ORDERED: BUPIVACAINE HCL/PF 0.5% (5MG/ML) 10 ML VIAL IJ ONE (14:47)
[2022-05-26] MEDS ORDERED: DEXAMETHASONE SOD PHOSPHATE 4 MG/1 ML VIAL ONE (14:58)
[2022-05-26] MEDS ORDERED: ONDANSETRON 4 MG/2 ML VIAL ONE (14:58)
[2022-05-26] MEDS ORDERED: KETOROLAC TROMETHAMINE 30 MG/1 ML VIAL ONE (15:19)
[2022-05-26] MEDS ORDERED: HYDROmorphone HCl 2 MG/ML VIAL ONE (15:38)
[2022-05-26] MEDS ORDERED: ONDANSETRON 4 MG/2 ML VIAL IVPUSH PRN (17:11)
[2022-05-26] MEDS ORDERED: oxyCODONE HCL 5 MG TABLET PO PRN (17:11)
[2022-05-26] MEDS ORDERED: LACTATED RINGERS SOLUTION 1,000 ML IV SCH (17:15)
[2022-05-26 19:25] VITALS: RESP 20; TEMP 96.7
[2022-05-26 19:27] VITALS: BP 139/84; PULSE 78
== END 2022-05-26 19:10 | disposition home or self-care (01) ==
LOC: JASU-SURG 04:02
PROVIDERS: ATTEND Podiatrist Foot & Ankle Surgery
PROC: 0QBP0ZZ Excision of Left Metatarsal, Open Approach (ICD-10-PCS; 2022-05-26)
PROC: 0SGL0JZ Fusion of Left Tarsometatarsal Joint with Synthetic Substitute, Open Approach (ICD-10-PCS; principal; 2022-05-26 13:00)
DX: M20.12 Hallux valgus (acquired), left foot (principal)
CPT/HCPCS: 20900; 28297; 28750; C1713; 76000-TC-FY; 94760